=== PATIENT | female | born 1950 | race Caucasian/White ===

== ENCOUNTER 2019-08-09 14:31 | Emergency (ER) | payer MEDICARE, SELFPAY ==
[2019-08-09 14:33] VITALS: BP 140/89; PULSE 79; RESP 16; TEMP 36.3; O2SAT 96; BMI 49.9
--- NOTE | 2019-08-09 15:00 | CT_ITS ---
STUDY: CT BRAIN WITHOUT CONTRAST REASON FOR EXAM: Female, 69 years old. 3 month history of headaches. RADIATION DOSAGE (If Supplied By Facility): CTDIvol = ( 44.99 ) mGy, DLP = ( 779.24 ) mGycm TECHNIQUE: Transaxial CT imaging of the brain was performed without administration of intravenous contrast material. Individualized dose optimization techniques were used for this CT. COMPARISON: No relevant priors. FINDINGS: Normal soft tissue structures. Normal calvarium. There is mild cerebral atrophy with widening of the extra-axial spaces and ventricular dilatation. There are areas of decreased attenuation within the white matter tracts of the supratentorial brain, consistent with microvascular disease changes. Normal basal ganglia and thalami. Normal brainstem. Normal cerebellum. There is no intracranial hemorrhage. There are no findings of an acute ischemic infarction. Normal visualized paranasal sinuses. CT/Brain/Head without Contrast IMPRESSION: Chronic involutional changes of the brain. Electronically Signed: Jimmy Stoll, at 15:54 EST , Service support ,
--- NOTE | 2019-08-09 15:00 | EKG12_ITS ---
Test Reason : HEADACHE Blood Pressure : / mmHG Vent. Rate : 080 BPM Atrial Rate : 080 BPM P-R Int : 172 ms QRS Dur : 094 ms QT Int : 382 ms P-R-T Axes : 046 -38 015 degrees QTc Int : 440 ms Normal sinus rhythm Possible Left atrial enlargement Left axis deviation Left ventricular hypertrophy Abnormal ECG Confirmed by BERNARDINO GARY, JAQUI ([id number]), purchasing expeditor GIAN CARR ([id number] on 08/13/2019 11:14:35 AM Referred By: MATIAS Confirmed By:JAQUI LEBRON MD
--- NOTE | 2019-08-09 15:04 | ED.DCSUM_ITS ---
- ER Visit Summary Date of Service: 08/09/19 Chief Complaint: Headache History of Present Illness: The patient is a 69 F with a headache for 2 months. She is not sure what brought this on, but it seems to be worse with light. She has headaches daily. Associated with nausea. She does report that she hit her head about 6 months ago. She is also concerned that about 5 weeks ago she had a stroke. She describes left facial numbness and left neck numbness. She never saw a physician for this and has not been to a doctor for over 20 years, because she says she does not trust doctors. Recently, she is having a runny nose and sore throat. She also has right facial and temporal pain and is concerned she had a sinus infection. She tried sinus medicine but it does not help. She also reports that she had some bleeding from her left ear after she scratched it. She does not take any meds regularly. She has a remote history of hypertension. Physical Examination: Afebrile and vital signs unremarkable. Head normal inspection. HEENT exam unremarkable. Neck nontender with good range of motion. Cranial nerves grossly intact. Heart regular. Lungs clear. Good strength and sensation. Bilateral lower extremity edema, symmetric, nontender. NIH stroke scale is 0. Test Results: EKG, labs, CT pending. Emergency Department Course and Treatment: Patient was treated with fluids, Benadryl, and Compazine while awaiting results. EKG showed sinus rhythm at a rate of 80. Troponin normal. CBC, BMP, coags unremarkable. ESR 31 which is normal when age-adjusted. CT showed chronic changes only. Nothing acute. On reevaluation, patient had some relief. She was also treated with a low dose of Toradol. Kidney function was normal. Patient will be discharged to use [id number] remedies for symptoms. Stay hydrated and rested. She was given a referral for primary care. Patient was advised that we will need further outpatient evaluation. Return for any new or worsening issues. Treatment Plan: As above Disposition: Discharge Impression: 1. Chronic headache This note was generated with [employer] software. It may contain incorrect words, spelling, and punctuation that were not noted in review of the chart prior to signing ED Disposition - Plan for ED Patient: Referrals: Care Physician,No Primary [Primary Care Provider] -
[2019-08-09] MEDS: DiphenhydrAMINE 50 MG/ML Syringe 25 MG IV (15:35)
[2019-08-09] MEDS: proCHLORPERazine 10 MG/2 ML Vial IV (15:35)
[2019-08-09] MEDS: 0.9% Normal Saline 1,000 ML 999 ML IV (15:37)
[2019-08-09 15:50] LABS: Absolute Lymphocyte Count 2.07 X10^3/uL (0.83-4.51); Basophil# 0.04 X10^3/uL; Basophil% 0.5 % (0-1); Eosinophil# 0.04 X10^3/uL; Eosinophils% 0.5 % (0-5); Hematocrit 41.5 % (37-47); Hemoglobin 13.3 g/dL (12.0-15.0); Lymphocyte # 2.07 X10^3/ul (4.0); Lymphocyte % 26.4 % (19-41); Mean Corpuscular Hgb 28.7 pg (27.0-32.0); Mean Corpuscular Volume 89.4 fL (81-99); Mean Platelet Vol. 9.5 fl (6.2-12.0); Monocyte# 0.68 X10^3/uL; Monocyte% 8.7 % (0-10); NRBC Flagged by Analyzer 0 % (0-5); Neutrophil # 4.97 X10^3/uL (2.7-7.7); Neutrophil % 63.4 % (47-70); Platelet Count 324 K/mm3 (150-450); RBC Distribution Width CV 13.7 % (11.6-14.6); RBC Distribution Width SD 44.6 fl (35.1-43.9); Red Blood Count 4.64 M/mm3 (4.2-5.4); White Blood Count 7.8 K/mm3 (4.4-11.0)
[2019-08-09 16:07] LABS: Erythrocyte Sedimentation Rate 31 mm/hr (0-30)
[2019-08-09 16:12] LABS: International Normalized Ratio 1.2; Prothrombin Time (Protime)PT. 14.6 SECONDS (11.7-14.9)
[2019-08-09 16:13] LABS: Anion Gap 7 (5-15); BUN 9 mg/dL (7-18); BUN/Creat Ratio 9.8 RATIO (10-20); Calcium,Total 9.3 mg/dL (8.5-10.1); Chloride 98 mmol/L (98-107); Creatinine, Serum 0.91 mg/dL (0.55-1.02); EST Glomerular Filtration Rate 65 mL/min (>60); Est Glom Filt Rate - Afr Amer 78 mL/min (>60); Estimated Creatinine Clearance 51.76 ml/min; Glucose 105 mg/dL (74-106); Partial Thromboplast Time 33.4 Seconds (24.1-36.2); Potassium 3.6 mmol/L (3.5-5.1); Sodium Level 135 mmol/L (136-145)
--- NOTE | 2019-08-09 16:35 | ED.DEP ---
ED Disposition - Plan for ED Patient: Instructions: HEADACHE, Unspecified Referrals: Tari Maldonado MD [STAFF PHYSICIAN] -
[2019-08-09] MEDS: Ketorolac 15 MG/ML Vial IV (16:55)
[2019-08-09 17:05] VITALS: BP 162/92; PULSE 78; RESP 16; O2SAT 98
--- NOTE | 2019-08-09 17:06 | ED.RN ---
PT HAS NOT BEEN TO A DOCTOR SINCE 1989. STRONGLY ENCOURAGED PT TO ESTABLISH PCP, INFORMATION GIVEN ON LOCAL PCP TAKING NEW PTS. DAUGHTER AND GRANDDAUGHTER VOICE UNDERSTANDING.
== END 2019-08-09 17:08 | disposition home or self-care (01) ==
PROVIDERS: Emergency Provider Emergency Medicine
DX: R51 Headache (principal)
CPT/HCPCS: 70450; 80048; 84484; 85025; 85610; 85652; 85730; 93005; 96361; 96374; 96375; 99283; J7030; A4216